=== PATIENT | male | born 1990 | race African-American/Black ===

== ENCOUNTER 2025-04-13 12:40 | Emergency (ER) | payer MEDICAID ==
[~2025-04-13] VITALS: Ht 175.3 cm; Wt 73.0 kg
[2025-04-13 12:49] VITALS: O2SAT 99
[2025-04-13] MEDS: KETOROLAC 15MG/ML VIAL IM ONE (13:51)
[2025-04-13] MEDS ORDERED: IBUP-2029 MT (14:20)
[2025-04-13] MEDS ORDERED: METH4TAB95 MT (14:20)
[2025-04-13] MEDS ORDERED: LIDO-53 TP (14:21)
[2025-04-13 14:49] VITALS: BP 157/86; PULSE 60; RESP 16; TEMP 36.9; O2SAT 99
== END 2025-04-13 14:59 | disposition home or self-care (01) ==
LOC: ER 12:40
DX: M54.32 Sciatica, left side (principal); Z79.899 Other long term (current) drug therapy
CPT/HCPCS: 96372; 99283; J1885; Z7610

== ENCOUNTER 2025-06-20 00:53 | Emergency (ER) | payer OTHER, MEDICAID ==
[~2025-06-20] VITALS: Ht 175.3 cm; Wt 78.0 kg
[~2025-06-20 00:53] MED LIST: IBUP-1455 MT; LIDO-53 TP; METH4TAB95 MT
[2025-06-20 01:37] VITALS: O2SAT 99
[2025-06-20] MEDS ORDERED: IBUP-1455 MT (02:18)
[2025-06-20] MEDS: KETOROLAC 30MG/ML VIAL IM ONE (02:32)
[2025-06-20 02:35] VITALS: BP 120/79; PULSE 60; RESP 14; TEMP 36.9; O2SAT 100
== END 2025-06-20 02:58 | disposition home or self-care (01) ==
LOC: ER 00:53
DX: S09.8XXA Other specified injuries of head, initial encounter (principal); G44.309 Post-traumatic headache, unspecified, not intractable; V89.2XXA Person injured in unspecified motor-vehicle accident, traffic, initial encounter; Y93.89 Activity, other specified; Y92.89 Other specified places as the place of occurrence of the external cause; Y99.8 Other external cause status
CPT/HCPCS: 99283; 96372; J1885